=== PATIENT | male | born 1980 ===

== ENCOUNTER 2018-09-22 13:25 | Inpatient (IN) | payer OTHER ==
--- NOTE | 2018-09-22 13:42 | C.PDOC ---
History Of Present Illness 38 yr old w/ hx of opiate abuse p/w request for detox. Pt notes that he is mainly coming here for detox from opiates, which he last inhaled yesterday via nostrils. He denies any nose pain or headache or abnormal nasal discharge or n fidel rash but notes that he has had x3d of sharp stabbing chest pain everytime he moves L or R arm. No pain with deep breaths. Notes pain is worse when he presses on his L chest. No SOB or hx of blood clots. No hx of hormonal therapy, venous stasis or recent trauma or surgery. No IVDU or any other drug / etoh use. No fall or trauma. No abdominal pain. No N/V. No GI or complaints. Pt notes he would like his labs done since he cannot get detox today. (no beds available). No fever or intermittent fever, chills or night sweats . No other complaints. Time Seen by Provider: 09/22/18 13:27 Chief Complaint (Nursing): Substance Abuse Past Medical History Family History: States: Unknown Family Hx Review Of Systems Constitutional: Negative for: Fever, Chills, Sweats, Weakness, Malaise, Weight loss Eyes: Negative for: Pain, Vision Change, Eyelid Inflammation, Redness ENT: Negative for: Ear Pain, Ear Discharge, Nose Pain, Nose Discharge, Nose Congestion, Mouth Pain, Mouth Swelling, Throat Pain Cardiovascular: Positive for: Chest Pain. Negative for: Palpitations, Orthopnea, Paroxysmal Noc. Dyspnea, Edema, Light Headedness, Other Respiratory: Negative for: Cough, Shortness of Breath Gastrointestinal: Negative for: Nausea, Vomiting, Abdominal Pain, Constipation, Melena, Hematochezia, Hematemesis Genitourinary: Negative for: Dysuria, Frequency, Incontinence, Hematuria Musculoskeletal: Negative for: Neck Pain, Shoulder Pain, Arm Pain, Back Pain Skin: Negative for: Rash, Lesions Neurological: Negative for: Weakness, Numbness, Incoordination, Change in Speech, Altered Mental Status, Headache Psych: Negative for: Anxiety, Depression, Psychosis, Suicidal ideation, Withdrawal Physical Exam - Physical Exam Appears: Well, Non-toxic, No Acute Distress Skin: Normal Color, Warm Head: Atraumatic, Normacephalic Eye(s): bilateral: Normal Inspection, PERRL, EOMI Ear(s): Left: Normal Nose: Normal, No Flaring, No Discharge Oral Mucosa: Moist Tongue: Normal Appearing Lips: Normal Appearing Gingiva: Normal Appearing Throat: Normal, No Erythema, No Exudate, No Drooling, No Mass Neck: Normal, Normal ROM, Supple, Other (no meningeal signs) Chest: Symmetrical, No Deformity, No Tenderness, No Ecchymosis, Other (chest pain reproducible to palpation, L chest wall) Cardiovascular: Rhythm Regular, No Edema, No Friction Rub, No Murmur, No JVD Respiratory: Normal Breath Sounds, No Decreased Breath Sounds, No Accessory Muscle Use, No Rales, No Rhonchi, No Stridor, No Wheezing, No Plerual Rub Gastrointestinal/Abdominal: Normal Exam, Soft, No Tenderness, No Organomegaly, No Mass, No Distention, No Guarding Back: Normal Inspection, No CVA Tenderness, No Vertebral Tenderness Extremity: Normal ROM, No Tenderness, No Pedal Edema, No Swelling Extremity: Bilateral: Atraumatic, Normal ROM Neurological/Psych: Oriented x3, Normal Speech, Normal Cognition, No Cerebellar Signs, Normal Motor Gait: Steady ED Course And Treatment - Laboratory Results Result Diagrams: 09/22/18 14:14 09/22/18 14:14 Medical Decision Making Medical Decision Makin yr old male w/ hx of opiate usage (non IVDU) p/w request for detox and chest pain. Out of inpt beds per Crisis: seen by Crisis and given resources for other detox sites, at which point pt notes he had some minor chest pain as well x3d and wanted to be evaluated for that as well. No orthopnea, leg swelling or MCCAULEY. Likely chest all pain given story and low heart score. No SI / HI or depression. No Hallucinations or too much / too little energy per pt. EK, NSR, no stemi Heart score: AGE: 0 RF: 0 Story: 0 EK Trop: pending Low pretest wells, PERC out. Pending labs, CXR 1412 CXR unremarkable 1424 Per crisis: bed available, additional labs added for detox 1532 labs largely unremarkable troponin negative: Heart score 0 Medically clear pending crisis No CP at present 1600 appreciate consult w/ crisis to admit to Dr. Doan service pt in nad, agreeable to plan Disposition - Disposition Disposition Time: 15:23 Condition: GOOD Forms: [facility] (Turkmen) - Clinical Impression Clinical Impression: Drug abuse
[2018-09-22 14:18] LABS: BASO % 0.7 % (0.0-2.0); EOS # 0.2 K/uL (0.0-0.7); EOS % 3.6 % (0.0-4.0); LYMPH # 1.4 K/uL (1.0-4.3); LYMPH % 21.9 % (20.0-40.0); MEAN CELL VOLUME 94.1 fL (80.0-94.0); MEAN CORPUSCULAR HEMOGLOBIN 32.6 pg (27.0-31.0); MEAN CORPUSCULAR HGB CONC 34.7 g/dL (33.0-37.0); MEAN PLATELET VOLUME 8.6 fL (7.2-11.7); MONO # 0.7 K/uL (0.0-0.8); MONO % 11.2 % (0.0-10.0); NEUT # 4.1 K/uL (1.8-7.0); NEUT % 62.6 % (50.0-75.0); RBC 4.29 Mil/uL (4.40-5.90); WHITE BLOOD COUNT 6.5 K/uL (4.8-10.8)
[2018-09-22 14:37] LABS: ALB/GLOB RATIO 1.7 (1.0-2.1); ALBUMIN 4.6 g/dL (3.5-5.0); ALT/SGPT 28 U/L (21-72); AST/SGOT 42 U/L (17-59); BLOOD UREA NITROGEN 22 mg/dL (9-20); CALCIUM 9.5 mg/dl (8.6-10.4); GFR NON-AFRICAN AMERICAN > 60
[2018-09-22 15:08] LABS: URINE BILIRUBIN NEGATIVE (NEGATIVE); URINE BLOOD NEGATIVE (NEGATIVE); URINE CLARITY Clear (Clear); URINE COLOR Yellow (YELLOW); URINE GLUCOSE (UA) NORMAL (Normal); URINE LEUKOCYTE ESTERASE NEG Leu/uL (Negative); URINE PROTEIN NEGATIVE (NEGATIVE)
[2018-09-22 15:17] LABS: ACETAMINOPHEN < 10.0 ug/mL (10.0-30.0); SALICYLATE < 1.0 {null, mg/dL 1}
[2018-09-22 15:33] LABS: BARBITURATES, UR NEGATIVE (NEGATIVE); BENZODIAZEPINES, UR NEGATIVE (NEGATIVE); PHENCYCLIDINE, UR NEGATIVE (NEGATIVE)
[2018-09-22 15:38] LABS: OPIATES, UR POSITIVE (NEGATIVE)
--- NOTE | 2018-09-22 16:05 | RAD ---
Date of service: 09/22/2018 HISTORY: cp COMPARISON: No prior. TECHNIQUE: Chest PA and lateral views FINDINGS: LUNGS: No active pulmonary disease. PLEURA: No significant pleural effusion identified. No pneumothorax apparent. CARDIOVASCULAR: No aortic atherosclerotic calcification present. Normal cardiac size. No pulmonary vascular congestion. OSSEOUS STRUCTURES: No significant abnormalities. VISUALIZED UPPER ABDOMEN: Normal. OTHER FINDINGS: None. IMPRESSION: No active disease.
--- NOTE | 2018-09-22 16:29 | PCM.BM ---
Treatment Plan Problems - Problems identified on initial assessmt Defensive Coping Date Initiated: 09/22/18 Time Initiated: 16:13 Assessment reference: NA Status: Active Denial Date Initiated: 09/22/18 Time Initiated: 16:14 Assessment reference: NA Status: Active Hopelessness Date Initiated: 09/22/18 Time Initiated: 16:14 Assessment reference: NA Status: Active Treatment assets and liabiliti Patient Assests: cooperative, motivated, strong manuela Patient Liabilities: live alone, poor support system, substance abuse - Milieu Protocol Maintain good personal hygiene: daily Encourage regular showers, daily Remind patient to perform daily oral care, daily Assist patient to perform ADL's Maintain personal safety: every shift Educate patient to report safety concerns to staff, every shift Monitor environment for contraband/sharps Medication safety: Monitor for expected outcome, potential side effects: every shift, Assess barriers to learning: every shift, Assess readiness for medication education: every shift
[2018-09-22] MEDS ORDERED: Aluminum Hydroxide/Magnesium Hydroxide Susp (30 mL) PO PRN (18:34)
[2018-09-23] MEDS: Multiple Vitamins Tab PO SCH (09:12)
[2018-09-23 16:48] VITALS: O2SAT 99
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
[2018-09-24] MEDS: Multiple Vitamins Tab PO SCH (10:01)
--- NOTE | 2018-09-24 14:36 | PCM.PYCHPN ---
Psychiatric Progress Note - Psychiatric Progress Note Patient seen today, length of contact: 18 min Patient Chief Complaint: 17 min Problems Identified/Issues Discussed: The pt is seen, chart reviewed, case discussed with staff. The pt is compliant with medications and reports no side-effects. Symptoms are improving but needs more time to stabilize. Pt attends groups and activities. Support given, psycho-education provided. After care discussed. Medication Change: Yes (detox changes daily) Medical Record Reviewed: Yes Mental Status Examination - Cognitive Function Orientation: Person, Place, Situation, Time Memory: Intact Attention: WNL Concentration: Poor Association: WNL Fund of Knowledge: WNL - Mood Mood: Depressed, Anxious - Affect Affect: Constricted, Depressed - Speech Speech: Appropriate - Formal Thought Process Formal Thought Process: No Impairment - Suicidal Ideation Suicidal Ideation: No - Homicidal Ideation Homicidal Ideation: No Goal/Treatment Plan - Goal/Treatment Plan Need for Continued Stay: Discharge may exacerbated symptoms, Severe functional impairment Progress Toward Problem(s) and Goals/Treatment Plan: Continue medications Support and psychoeducation daily Attend groups and activities daily After care planning by DARCIE
[2018-09-24 14:55] VITALS: RESP 18
[2018-09-24 16:14] VITALS: BP 127/75; PULSE 78; TEMP 98.1
--- NOTE | 2018-09-25 00:07 | PCM.PYCHDC ---
Mental Status Examination - Mental Status Examination Orientation: Person Discharge Summary - Discharge Note Consultations:: List each consultation separately and include: 1. Reason for request. 2. Findings. 3. Follow-up Summary of Hospital Course include:: 1. Description of specific treatment plan utilized for patients during their course of treatmen. 2. Summarize the time- course for resolution of acute symptoms and/or regressed behaviors. 3. Describe issues identified and worked on during hospitalization. 4. Describe medication utilized. 5. Describe medical problems identified and treated. 6. Reassessment of suicide risk Summary of Hospital Course: Pt was found to cheek meds and horde. Soon after being confronted, he demanded to leave AMA. - Final Diagnosis (DSM 5) Condition upon Discharge: GOOD Disposition: AGAINST MEDICAL ADVICE Follow-up Treatment Plan: Continue medications Support and psychoeducation daily Attend groups and activities daily After care planning by DARCIE
--- NOTE | 2018-09-25 01:36 | CARD ---
APPROVED REPORT Date of service: 09/22/2018 EKG Measurement Heart [id number] <Conclusion> Normal sinus rhythm Normal ECG
[2018-09-25] MEDS ORDERED: Influenza Vaccine 60 mcg/0.5 mL SYR (4YR UP) IM ONE (10:00)
[2018-09-25] MEDS ORDERED: Pneumococcal 23-Valent Vaccine IM ONE (10:00)
== END 2018-09-24 16:47 | disposition left against medical advice (07) | DRG 743 ==
LOC: C.ER 13:25 → C.7D 15:57
PROVIDERS: ADMIT Psychiatry & Neurology Psychiatry; ATTEND Psychiatry & Neurology Psychiatry
PROC: HZ2ZZZZ Detoxification Services for Substance Abuse Treatment (ICD-10-PCS; principal; 2018-09-22)
PROC: HZ59ZZZ Individual Psychotherapy for Substance Abuse Treatment, Supportive (ICD-10-PCS; 2018-09-22)
PROC: GZ3ZZZZ Medication Management (ICD-10-PCS; 2018-09-22)
PROC: HZ46ZZZ Group Counseling for Substance Abuse Treatment, Psychoeducation (ICD-10-PCS; 2018-09-22)
DX: F11.23 Opioid dependence with withdrawal (principal); F14.10 Cocaine abuse, uncomplicated; F10.10 Alcohol abuse, uncomplicated; F12.10 Cannabis abuse, uncomplicated; F32.9 Major depressive disorder, single episode, unspecified; F41.9 Anxiety disorder, unspecified; F17.210 Nicotine dependence, cigarettes, uncomplicated; Z59.0 Homelessness

== ENCOUNTER 2018-11-01 22:50 | Emergency (ER) | payer OTHER | END 2018-11-02 01:15 | disposition home or self-care (01) | LOC: C.ER 22:50 | DX: R00.2 Palpitations (principal) ==